=== PATIENT | male | born 1995 ===

== ENCOUNTER 2019-12-22 16:04 | Outpatient (CLI) | payer OTHER | END 2019-12-22 16:27 | disposition home or self-care (01) | LOC: RAD 16:04 | DX: M85.80 Other specified disorders of bone density and structure, unspecified site (principal) ==

== ENCOUNTER 2023-06-03 07:38 | Outpatient (CLI) | payer OTHER | END 2023-06-03 07:53 | disposition home or self-care (01) | LOC: MRI 07:38 | PROVIDERS: ATTEND Physical Medicine & Rehabilitation | DX: M25.552 Pain in left hip (principal) | CPT/HCPCS: 73718 ==